=== PATIENT | female | born 1970 | race Caucasian/White ===

== ENCOUNTER → 2019-11-13 15:47 | Outpatient (REF) | payer OTHER, SELFPAY | LOC: ANHLAB 15:47 | PROVIDERS: PCP Internal Medicine; Visit Provider Nurse Practitioner | DX: D22.0 Melanocytic nevi of lip (principal); D22.39 Melanocytic nevi of other parts of face | CPT/HCPCS: 88305 ==

== ENCOUNTER → 2022-03-13 11:53 | Outpatient (CLI) | payer OTHER, SELFPAY ==
--- NOTE | ~2022-03-13 | US_ITS ---
EXAMINATION: US thyroid DATE: 03/13/2022 12:08 INDICATION: Thyroid nodule. TECHNIQUE: Multiple ultrasound images of the thyroid were obtained. COMPARISON: None. FINDINGS: The right thyroid lobe measures 4.6 x 1.0 x 1.2 cm. The left thyroid lobe measures cm. In the right thyroid lobe, there is a 3 mm nodule. IMPRESSION: 1. Small thyroid nodule, likely not clinically significant. No follow-up is needed. Reviewed, dictated and finalized at location A. IMPRESSION: 1. Small thyroid nodule, likely not clinically significant. No follow-up is nee ded.
== END ==
PROVIDERS: PCP Family Medicine
DX: E04.1 Nontoxic single thyroid nodule (principal)
CPT/HCPCS: 76536

== ENCOUNTER 2022-08-04 13:46 | Outpatient (NON) | payer OTHER, SELFPAY | END 2022-08-04 13:47 | disposition home or self-care (01) | PROVIDERS: PCP Family Medicine; Visit Provider Nurse Practitioner | DX: C44.319 Basal cell carcinoma of skin of other parts of face (principal); L56.8 Other specified acute skin changes due to ultraviolet radiation | CPT/HCPCS: 88305 ==

== ENCOUNTER 2022-08-31 13:48 | Outpatient (NON) | payer OTHER, SELFPAY | END 2022-08-31 13:49 | disposition home or self-care (01) | LOC: ANHLAB 13:49 | PROVIDERS: PCP Family Medicine; Visit Provider Nurse Practitioner | DX: C44.319 Basal cell carcinoma of skin of other parts of face (principal) | CPT/HCPCS: 88305; 88331 ==